=== PATIENT | male | born 1970 | race Caucasian/White ===

== ENCOUNTER 2021-10-20 15:51 | Outpatient (CLI) | payer BC, SELFPAY ==
[2021-10-20 16:47] LABS: SARS-CoV-2 RNA PCR Negative (Negative)
== END 2021-10-20 15:52 | disposition home or self-care (01) ==
LOC: CHSLAB 15:57
PROVIDERS: PCP Internal Medicine; Visit Provider Internal Medicine
DX: Z20.822 Contact with and (suspected) exposure to COVID-19 (principal)
CPT/HCPCS: C9803; U0003; U0005

== ENCOUNTER 2025-08-28 11:14 | Outpatient (CLI) | payer BC, SELFPAY ==
--- NOTE | ~2025-08-28 | XR_ITS ---
EXAMINATION: XR hand RT min 3V, 08/28/2025 11:22 CDT HISTORY: R HAND PAIN FOLLOWING TRAUMA 1 MO AGO COMPARISON: No comparisons available. Findings: No acute fracture or malalignment. Moderate degenerative changes of the first metacarpal phalangeal joint Soft tissues unremarkable. Impression: No acute fracture or malalignment. Reviewed, dictated and finalized at location P. Impression: No acute fracture or malalignment.
== END 2025-08-28 11:15 | disposition home or self-care (01) ==
LOC: CHSIMG 11:17
PROVIDERS: PCP Internal Medicine; Visit Provider Internal Medicine
DX: S69.91XA Unspecified injury of right wrist, hand and finger(s), initial encounter (principal)
CPT/HCPCS: 73130